=== PATIENT | male | born 1960 | race Caucasian/White ===

== ENCOUNTER 2023-08-06 16:56 | Emergency (ER) | payer MEDICARE, SELFPAY ==
--- NOTE | ~2023-08-06 | US_ITS ---
EXAMINATION: US VENOUS ULTRASOUND WITH DOPPLER LOWER EXTREMITY, LEFT CLINICAL INFORMATION: Pain in left calf COMPARISON: None available. TECHNIQUE: Ultrasound of the deep veins is performed from the hip to the calf with compression sonography and color and pulse Doppler assessment. Spectral analysis with color-flow imaging is performed. FINDINGS: There is normal venous compression and respiratory variation and augmented flow. The visualized common femoral vein, superficial femoral vein, profunda femoral vein, popliteal vein, and the trifurcation region shows no evidence of deep venous thrombosis. There is no significant popliteal fossa cyst. If the patient's symptoms persist, followup ultrasound in 5 days 7 days might be of value to exclude proximal propagation from a non-visualized calf vein. US/US venous duplex LE LT IMPRESSION: No DVT demonstrated in the left lower extremity.
[2023-08-06 18:32] VITALS: BP 133/80; PULSE 73; RESP 16; TEMP 36.2; O2SAT 96; BMI 32.7
[2023-08-06 18:49] LABS: MANUAL DIFF FLAG NO
[2023-08-06 18:50] LABS: Basophils Percent Auto 0.4 % (0-2); Eosinophils Absolute Auto 0.1 X10*3/uL (0.0-0.4); Eosinophils Percent Auto 1.9 % (0-4); Hematocrit 49.5 % (42.0-52.0); Imm Gran Abs Auto 0.03 X10*3/uL (0.00-0.03); Imm Gran Pct Auto 0.4 % (0.0-0.4); Lymphocytes Absolute Auto 3.1 X10*3/uL (1.2-4.9); Lymphocytes Percent Auto 40.6 % (20-40); Mean Corpuscular HGB Conc 34.3 g/dl (31.0-36.0); Mean Corpuscular Hemoglobin 30.4 pg (27.0-33.0); Mean Corpuscular Volume 88.4 fL (80.0-98.0); Mean Platelet Volume 10.2 fL (9.4-12.4); Monocytes Absolute Auto 0.7 X10*3/uL (0.1-1.2); Monocytes Percent Auto 9.7 % (2-11); Neutrophils Absolute Auto 3.5 x10*3/uL (2.0-8.3); Platelet Count 183 X10*3/uL (160-400); White Blood Count 7.5 X10*3/uL (4.8-10.8)
[2023-08-06 19:05] LABS: Alanine Aminotransferase 43 U/L (0-40); Albumin Level 3.8 g/dL (3.5-5.0); Alkaline Phosphatase 64 U/L (39-117); Anion Gap 12 (12-20); Aspartate Amino Transferase 23 U/L (5-37); Bilirubin Total 0.4 mg/dL (0.0-1.0); Blood Urea Nitrogen 15 mg/dL (9-16); Calcium 9.3 mg/dL (8.4-10.2); Carbon Dioxide 28 mmol/L (22-29); Chloride 107 mmol/L (96-108); Creatinine Clr Calc Pharmacy 80.1; Estimated Glomerular Filt Rate > 60; Glucose Random 144 mg/dL (60-115); Potassium 4.2 mmol/L (3.3-5.1); Sodium 143 mmol/L (135-145)
--- OUTSIDE RECORDS SUMMARY | 2023-08-07 02:12 | XMS_ITS | Continuity of Care Document ---
Author Name Unknown Organization [facility] ter Address [address] [place] [address]- Care Team Providers Care Striker Out Name Role Phone Mamadou Rossi MD Primary Care Physician [phone] Encounter [facility] Date(s): 11/24/19 - 02/23/[address] [address]- [facility] Attending Physician: Mamadou Rossi MD Allergies, Adverse Reactions, Alerts Substance Reaction Severity Status ciprofloxacin Active Immunizations Given and Recorded Vaccine Date Status Refusal Reason pneumococcal 23-valent vaccine 02/08/10 Given Medications aspirin 81 mg oral tablet 1 tablet = 81 mg, By Mouth, Daily, 0 Refills, Maintenance Start Date: 02/07/10 Status: Ordered Flomax 0.4 mg oral capsule 1 capsule = 0.4 mg, By Mouth, Daily, 0 Refills, Maintenance Start Date: 02/07/10 Status: Ordered
--- OUTSIDE RECORDS SUMMARY | 2023-08-07 02:12 | XMS_ITS | Continuity of Care Document ---
Author Name Unknown Organization [facility] ter Address [address] [place] [address]- Care Team Providers Care Supervisor Cap [employer] Hat Production Name Role Phone Flo PALOMO, Mamadou S Primary Care Physician Encounter [facility] [place] Date(s): 05/20/23 - 05/20/[address] [address] Discharge Disposition: A-D/C Home Attending Physician: Mamadou Cote MD Admitting Physician: Mamadou Cote MD Referring Physician: Mamadou Cote MD Allergies, Adverse Reactions, Alerts Substance Reaction Severity Status ciprofloxacin 1 Active 1Pt not aware of this allergy Immunizations Given and Recorded Vaccine Date Status Refusal Reason pneumococcal 23-valent vaccine 02/08/10 Given Medications Flonase Daily, 0 Refills, Maintenance, 04/06/23 9:27:00 EDT, Partial fill upon patient request if the prescription is for a schedule II opioid drug. Start Date: 04/06/23 Status: Ordered Multivitamin See Instructions, 1 tablet daily, 0 Refills, Maintenance, 05/19/23 12:14:00 EDT, Partial fill upon patient request if the prescription is for a schedule II opioid drug. Start Date: 05/19/23 Status: Ordered omeprazole 20 mg oral delayed release tablet 1 tablet = 20 mg, By Mouth, Daily, 0 Refills, Maintenance, 04/06/23 9:26:00 EDT, Partial fill upon patient request if the prescription is for a schedule II opioid drug. Start Date: 04/06/23 Status: Ordered Vitamin D3 1000 intl units oral capsule 1 capsule = 25 mcg, By Mouth, Daily, # 75 capsule, 0 Refills, Maintenance, 05/19/23 12:15:00 EDT, Capsule, Partial fill upon patient request if the prescription is for a schedule II opioid drug. Start Date: 05/19/23 Status: Ordered Problem List Condition Confirmation Course Effective Dates Status Health St atus Informant Inflamed epidermal inclusion cyst of posterior neck Confirmed Active GERD (gastroesophageal reflux disease) Confirmed Active Obese class I Confirmed Active Procedures Procedure Date Related Diagnosis Body Site Status Excision 3.5 cm epidermal in clusion cyst posterior neck 05/20/23 Completed Vital Signs Most recent to oldest [Reference Range]: 1 2 3 Height 173 cm (05/20/23 6:58 AM) 173 cm (05/19/23 12:16 PM) Weight 98.2 kg (05/20/23 6:58 AM) 95.5 kg (05/19/23 12:16 PM) Oxygen Saturation [94-100 %] 95 % (05/20/23 9:45 AM) 93 % *L* (05/20/23 9:30 AM) 97 % (05/20/23 9:15 AM) Pulse Rate [55-90 bpm] 63 bpm (05/20/23 6:58 AM) Body Mass Index [18.5-24.99 kg/m2] 32.81 kg/m2 *>HHI* (05/20/23 6:58 AM) 31.91 kg/m2 *>HHI* (05/19/23 12:16 PM) Blood Pressure [90-138/55-84 mm Hg] 119/83mm Hg (05/20/23 9:45 AM) 128/82mm Hg (05/20/23 9:30 AM) 128/79mm Hg (05/20/23 9:15 AM) Respiratory Rate [16-30 br/min] 18 br/min (05/20/23 9:45 AM) 23 br/min (05/20/23 9:30 AM) 31 br/min *H* (05/20/23 9:15 AM) Temperature [96.8-100.4 DegF] 97.1 DegF (05/20/23 9:15 AM) 97.1 DegF (05/20/23 6:58 AM) Mode of Delivery (Oxygen) Room air (05/20/23 9:45 AM) Room air (05/20/23 9:15 AM) Room air (05/20/23 6:58 AM) Blood pressure sites Arm, right (05/20/23 9:15 AM) Arm, left (05/20/23 6:58 AM) Temperature Route Temporal (05/20/23 9:15 AM) Temporal (05/20/23 6:58 AM) Dry Weight 98.2 kg (05/20/23 6:58 AM) 95.5 kg (05/19/23 12:16 PM) Weight Obtained Via Standing scale (05/20/23 6:58 AM) Patient/family stated (05/19/23 12:16 PM) Dry Weight Obtained Via Standing scale (05/20/23 6:58 AM) Patient/family stated (05/19/23 12:16 PM) Social History Social History Type Response Smoking Status Never (less than 100 in lifetime) entered on: 04/06/23 Sex Note * Daria Pastrana RN: PERFORM Event Display: Discharge/Transfer Note Hospital Authored Date: [id number] Nursing Discharge Note Entered On: 05/20/2023 9:52 EDT Performed On: 05/20/2023 9:51 EDT by Daria Pastrana RN Nursing Discharge Note 2 Discharge Time : 05/20/2023 9:52 EDT Discharge Level of Care at Discharge : Home/Nursing Home/Foster Care Patient Left Unit Via : Wheelchair Patient Accompanied Off Unit with : Responsible adult DC Instructions Provided & Signed by Pt : Yes Patient Understands D/C Instructions : Yes Verbalized Understanding of D/C Plan By : Patient Patient Instructions Discharge Signed : Yes Did Pt have Specialty Bed or Wound Vac : No Daria Pastrana RN - 05/20/2023 9:51 EDT * Daria Pastrana RN: PERFORM Event Display: Patient Education/Instruction Authored Date: [id number] Surgery Adult Discharge Instructions [address] [address] Name: BELLA BARAHONA : 1960?? Visit: 05/20/2023 05:50?? Current Date: 05/20/2023 09:27 ?? Account: [id number]?? Surgery Discharge Instructions We would like to thank you for allowing us to assist you with your healthcare needs. The following includes patient education materials and information regarding your injury/illness. Our entire staffstrives to provide an excellent experience for our patients and their families. PLEASE ENSURE YOU FOLLOW-UP PER THE INSTRUCTIONS BELOW! ?? YOUR OPINION IS IMPORTANT TO US! Please complete the survey you may receive by mail or email. Your feedback will be used to make improvements to the healthcare experiences of our patients and their families. Surveys are administered by [employer] ?? If further treatment with your primary care physician or another doctor is recommended, it is important for you to keep the appointment. Call your primary care physician or return to the Emergency Department immediately if your condition worsens, fails to improve, or new symptoms develop. If you need to find a doctor, you can call [facility] Link for a referral at [phone] or toll free at [phone]) or log in to [email or web address].. ?? [facility], in keeping with [facility] guidance, no longer requires face masks for staff, patientsor visitors in most situations. Similiar to time spent indoors at other locations, there is the chance that you were exposed to repiratory viruses during your time with us (such as flu or COVID-19). If you develop symptoms concerning for a viral respiratory infection, please seek testing (and treatment if indicated) from your medical provider or home test kit. ?? You can view and manage your care through the patient portal or by using a health care tamiko of your choosing. [employer] is a website that allows you to securely view your medical information including your hospital discharge summary, office visit summaries, medications and follow-up visits. You can also request appointments, renew medications, and request access to your medical information using a health care tamiko of your choosing, or just ask a question. You are entitled to know the individuals who participated in your treatment. This information is available within your medical record and will be provided upon your request. You can enroll at [email or web address] or register d uring your next office visit. You have been discharged from [facility], Patient Care Unit: [facility]??. If you have any questions regarding these instructions after you leave, please call us and we will be happy to assist you. [facility] Your Care Team Attending Physician Mamadou Cote MD?? Reason for Admission POSTERIOR NECK CYST CS DS Your Diagnosis Inflamed epidermal inclusion cyst of posterior neck Primary Care Provider Mamadou Rossi MD S? Advance Directive Health Care Proxy on File No What to do next Instructions From Your Doctor ?? Orders?? Instructions from your Care Team May shower and remove dressing in 48 hours. Leave sterii strips (white tape) in place, let them fall off on their own. Take Ibuprofen 600mg and Tylenol 1000 mg three times a day for three days.?? Both are over the counter. Scheduled Follow-Up Appointments Tuesday 12:10 PM EDT ?? With: Mamadou Cote MD Where: [address] [place] [address]- Status: Pending You Need to Schedule the Following Appointments Follow Up with??Mamadou Cote MD When:??Within 1 to 2 weeks Where: [address] [place] [address] [address] [place] [address]- Discharge Medications BELLA BARAHONA :1960 Visit Date:05/20/2023 Medications: Please continue your medications until treatment is completed or stopped by your provider. You may resume your daily prescription medications. Discuss any questions related to medications with your provider. What How Much When Instructions Next Dose Unchanged Cholecalciferol (Vitamin D3 1000 intl units oral capsule) 1 capsule Oral Daily Unchanged Fluticasone Nasal (Flonase) Daily Unchanged Multivitamin See instructions 1 tablet daily ?? Unchanged Omeprazole (omeprazole 20 mg oral delayed release tablet) 1 tab(s) Oral Daily Allergies (NKA means No Known Allergies) ciprofloxacin Education Materials Below is the list of Educational Leaflet Providered with your Discharge Instructions. Surgery Medical Daystay Surgical Overnight Discharge Instructions?NSAID Analgesic Schedule?? Valuables and Belongings I fully understand and agree that [facility] accepts no responsibility for all my personal property including clothing, toilet articles, radios, jewelry, dentures, hearing aids, rings, money, or any other property that is in my possession or is brought to me after admission. I understand certain valuables may be placed in a hospital safe for a short period of time. I understand that the hospital is not liable for loss or damage due to accident, fire, or other natural occurrence while said property is in the safe. I accept full responsibility for any personal property that I keep with me, and will not hold the hospital responsible in case of loss or disappearance. I acknowledge that i have been encouraged to send valuables and belongings home. ?? Review of Valuable and Belonging List: With patient Date for Pt to Sign Valuables/Belongings: 05/20/23 06:58:00 ?? Valuables & Belongings ?? Clothes Electronic devices Jewelry Monetary Items Personal devices Miscellaneous Medications (Valuables) Valuables at Bedside Pants, Shirt, Undergarments Cell phone ?? Credit cards, Money, Wallet ? Valuables Sent Home ? Valuables Sent to Security ? Other Discharge Information ? Pulmonary Rehab Status?? Pulmonary Rehab Discharge Status?? Respiratory Rate:??31 br/min??High ? Common Emergency Awareness Tips IS IT A STROKE? Act FAST and Check for these signs: FACE Does the face look uneven? ARM Does one arm drift down? SPEECH Does their speech sound strange? TIME Call at any sign of stroke ?? Heart Attack Signs Chest discomfort: Most heart attacks involve discomfort in the center of the chest and lasts more than a few minutes, or goes away and comes back. It can feel like uncomfortable pressure, squeezing, fullness or pain. Discomfort in upper body: Symptoms can include pain or discomfort in one or both arms, back, neck, jaw or stomach. Shortness of breath: With or without discomfort. Other signs: Breaking out in a cold sweat, nausea, or lightheaded. Remember, MINUTES DO MATTER. If you experience any of these heart attack warning signs, call to get immediate medical attention! ?? Smoking can increase your chances of developing chronic health problems and can cause harmful effects to other family members in your house. If you smoke, you are strongly encouraged to quit. Please call [facility] at [phone] or [phone] ([phone]) or log in to [email or web address] for referrals to smoking cessation programs. ?? The National Suicide Prevention Hotline is available 28/02 if you or someone you know needs to find a reason to keep living. By calling 7-586-273-hktn (9317) you'll be connected to a skilled, trained counselor at a crisis center in your area. SURGERY DISCHARGE INSTRUCTIONS SIGNATURE PAGE BELLA BARAHONA Location:[facility] Registration Date and Time:05/20/2023 05:50 EDT Primary Care Physician: Flo PALOMO, Mamadou Burgos, Attending Physician: Rocael PALOMO, Mamadou, I BELLA BARAHONA, have received the above patient education materials/instructions and have verbalized understanding. If ambulance or transport services are being used I further acknowledge being given a choice of service. ?? If you need to contact me, please call me at this number: . Patient/Securities Analyst Name: Patient/Securities Analyst Signature: Relationship to Patient: Witness Name/Signature: Date: * Daria Pastrana RN: PERFORM Event Display: Patient Education Leaflets Authored Date: [id number] Surgery Medical Daystay Surgical Overnight Discharge Instructions ?? 295 Medical Daystay/Surgical Overnight Discharge Instructions ? Since your coordination and judgment may be altered by medication and/or anesthesia, a responsible adult must drive you home from the hospital. ? If you have received medication for pain or sedation while under our care, you should not drive, operate machinery, drink alcohol, or sign any legal documents for 24 hours.?? You should have someone with you at home tonight. ? Remain at home the day of discharge.?? You may be up and about unless otherwise instructed by your physician. ? You may resume your daily prescription medication schedule.?? Any depressant medication should be avoided for 24 hours unless otherwise instructed by your surgeon or anesthesiologist. ? Call your physician for a follow-up appointment.? If you experience unusual or severe pain not relied by your pain medication, excessive bleedingor drainage, persistent nausea and vomiting, excessive swelling or redness, foul odor from incisionsite or fever over 100.6F, you need to call your physician. ? A follow-up phone call by a nurse will be made the day after your procedure.?? If you have stayed with us over night, you will not be receiving a follow-up phone call. ? Nausea and vomiting are a common side effect of prescription pain medication.?? We recommend that pills are not taken on an empty stomach.?? While taking any prescription pain medication you should not drive or drink alcohol. ? * Victoriano BUSTILLOS, [place]: PERFORM Event Display: Patient Education Leaflets Authored Date: [id number] NSAID Analgesic Schedule ?? 604 NSAID???s Analgesic Schedule ?? Pain is the primary source of illness following your procedure and can include dehydration, difficulty and painful swallowing, and weight loss. These symptoms can lead to increased post-operative visits and hospital readmission. The best way to control pain is to take pain medications regularly. Your doctor has recommended both Ibuprofen and Acetaminophen (generic/store brands are okay, too). These can be picked up over the counter at your pharmacy of choice. Follow the instructions on the bottle to determine the proper dosage to give. The simplest way to take these medications it to rotate the two at 3-hour intervals. Here is a sample diagram. The time you take your medications may vary from this example. Do not give Ibuprofen more than every 6 hours or Acetaminophen every 4 hours. Do not give Acetaminophen if your doctor has given you a prescription that contains Acetaminophen. ? Patient Care team information Care Team Personnel Name: Flo PALOMO, Mamadou Burgos Position: S Physician - Primary Care Member Role: PCP Address: Address: [address] [place] [address] Care Team Related Persons Name: APRIL BARAHONA Name: BARRY SINHA Address: home [address] [place] [address]
--- OUTSIDE RECORDS SUMMARY | 2023-08-07 02:12 | XMS_ITS | Continuity of Care Document ---
Author Name Unknown Organization [facility] Address [address] [place] [address] [address] [place] [address]- Care Team Providers Care Senior Dynamics Crm Developer Name Role Phone Mamadou Rossi MD Primary Care Physician Encounter [facility] Date(s): 04/20/23 - 04/27/[address] [place], [place] [address] Attending Physician: Mamadou Cote MD Referring Physician: Mamadou Rossi MD Allergies, Adverse Reactions, [...] opioid drug. Start Date: 04/06/23 Status: Ordered omeprazole 20 mg oral delayed release tablet 1 tablet = 20 mg, By Mouth, Daily, 0 Refills, Maintenance, 04/06/23 9:26:00 EDT, Partial fill upon patient request if the prescription is for a schedule II opioid drug. Start Date: 04/06/23 Status: Ordered Problem List Condition Confirmation Course Effective Dates Status Health St atus Informant Inflamed epidermal inclusion cyst of posterior neck Confirmed Active GERD (gastroesophageal reflux disease) Confirmed Active Obese class I Confirmed Active Vital Signs Most recent to oldest [Reference Range]: 1 Pulse Rate [55-90 bpm] 80 bpm (04/20/23 10:35 AM) Blood Pressure [90-138/55-84 mm Hg] 117/ 73mm Hg (04/20/23 10:35 AM) Respiratory Rate [16-30 br/min] 20 br/mi n (04/20/23 10:35 AM) Temperature [96.8-100.4 DegF] 97.2 DegF (04/20/23 10:35 AM) Blood pressure sites Arm, left (04/20/23 10:35 AM) Temperature Route Temporal (04/20/23 10:35 AM) Social History Social History Type Response Smoking Status Never (less than 100 in lifetime) entered on: 04/06/23 Sex Patient Care team information Care Team Personnel Name: Mamadou Rossi MD Position: [facility] Physician - Primary Care Member Role: PCP Address: Address: [address] [place] [address] Care Team Related Persons Name: APRIL BARAHONA Name: BARRY SINHA Address: [address] [address]
--- OUTSIDE RECORDS SUMMARY | 2023-08-07 02:12 | XMS_ITS | Continuity of Care Document ---
Author Name Unknown Organization [facility] Address [address] [place] [address] [address] [place] [address]- Care Team Providers Care Web Services Developer Name Role Phone Mamadou Rossi MD Primary Care Physician [place] [facility] [place] - 07/08/[address] [place], [place] [address] Attending Physician: Harley Perera Admitting Physician: AdmtrHarley Referring Physician: Admtr, [place] Allergies, Adverse Reactions, Alerts Substance Reaction Severity [...] Confirmed Active Obese class I Confirmed Active Social History Social History Type Response Smoking Status Never (less than 100 in lifetime) entered on: 04/06/23 Sex Patient Care team information Care Team Personnel Name: Mamadou Rossi MD Position: S Physician - Primary Care Member Role: PCP Address: Address: [address] [place] [address] Care Team Related Persons Name: APRIL BARAHONA Name: BARRY SINHA Address: home [address] [place] [address]
--- OUTSIDE RECORDS SUMMARY | 2023-08-07 02:12 | XMS_ITS | Continuity of Care Document ---
Author Name Unknown Organization [facility] Address [address] [place] [address] [address] [place] [address]- Care Team Providers Care Rn Traveling Name Role Phone Mamadou Rossi MD Primary Care Physician Encounter [facility] Date(s): 05/09/23 - 07/08/[address] [place] [address]- Attending Physician: Mamadou Cote MD Referring Physician: [...] Primary Care Member Role: PCP Address: Address: [address] [place] [address] Care Team Related Persons Name: APRIL BARAHONA Name: BARRY SINHA Address: home [address] [place] [id number]
--- OUTSIDE RECORDS SUMMARY | 2023-08-07 02:12 | XMS_ITS | Continuity of Care Document ---
Author Name Unknown Organization [facility] Address [address] [place] [address] [address] [place] [address]- Care Team Providers Care Industrial Relations Manager Name Role Phone Mamadou Rossi MD Primary Care Physician [place] [facility](s): 04/06/23 - 04/13/[address] [place], [place] [address] Attending Physician: Mamadou Cote MD Referring Physician: Mamadou Rossi MD Allergies, Adverse Reactions, Alerts Substance Reaction Severity Status ciprofloxacin 1 Active 1Pt not aware of this allergy Immunizations Given and Recorded Vaccine Date Status Refusal Reason pneumococcal 23-valent vaccine 02/08/10 Given Medications cephalexin monohydrate 500 mg oral capsule 1 capsule = 500 mg, By Mouth, 4 times a day, for 10 days, # 40 capsule, 0 Refills, Acute 04/16/23 10:01:00 EDT, 04/06/23 10:01:00 EDT, Capsule, [id number], Partial fill upon patient request if the prescription is for a schedule II opioid drug.... Start Date: 04/06/23 Stop Date: 04/16/23 Status: Ordered Flonase Daily, 0 Refills, Maintenance, 04/06/23 9:27:00 [...] Procedure Date Related Diagnosis Body Site Status Repair of inguinal hernia 2001 Completed Repair of inguinal hernia 1995 Completed Vital Signs Most recent to oldest [Reference Range]: 1 Height 172.00 cm (04/06/23 9:27 AM) Weight 97.2 kg (04/06/23 9:27 AM) Pulse Rate [55-90 bpm] 91 bpm *H* (04/06/23 9:27 AM) Body Mass Index [18.5-24.99 kg/m2] 32.86 kg/m2 *>HHI* (04/06/23 9:27 AM) Blood Pressure [90-138/55-84 mm Hg] 124/ 79mm Hg (04/06/23 9:27 AM) Respiratory Rate [16-30 br/min] 16 br/mi n (04/06/23 9:27 AM) Temperature [96.8-100.4 DegF] 98.2 DegF (04/06/23 9:27 AM) Blood pressure sites Arm, left (04/06/23 9:27 AM) Temperature Route Temporal (04/06/23 9:27 AM) Weight Obtained Via Standing scale (04/06/23 9:27 AM) Social History Social History Type Response Smoking Status Never (less than 100 in lifetime) entered on: 04/06/23 Sex Patient Care team information Care Team Personnel Name: Mamadou Rossi MD Position: S Physician - Primary Care Member Role: PCP Address: Address: [address] [place] [address] Care Team Related Persons Name: APRIL BARAHONA Name: BARRY SINHA Address: home [address] [place] [address]
== END 2023-08-07 02:17 | disposition left against medical advice (07) ==
PROVIDERS: Emergency Provider Emergency Medicine; PCP Internal Medicine
DX: M79.89 Other specified soft tissue disorders (principal)
CPT/HCPCS: 36415; 80053; 85025; 93971; 99281; 99284

== ENCOUNTER 2024-09-24 08:10 | Emergency (ER) | payer MEDICARE, SELFPAY ==
--- NOTE | ~2024-09-24 | US_ITS ---
CLINICAL HISTORY: pain popliteal fossa Venous duplex ultrasound right lower extremity Comparison: None Findings: The visualized deep veins are fully compressible with normal Doppler color flow and spectral tracings. No popliteal cyst. IMPRESSION: 1. Negative for right lower extremity deep vein thrombosis. This document has been electronically signed by: Della Pino MD on 09/24/2024 10:53:45
--- NOTE | ~2024-09-24 | XR_ITS ---
CLINICAL HISTORY: pop behind knee yesterday while shoveling 5 view right knee Comparison: None Findings: Normal alignment without acute fracture. Meniscal calcifications. Mild degenerative spiking of the tibial spines. Small superiorly projecting spur/osteophyte arising from anterior aspect of the tibial plateau. Small/physiological suprapatellar effusion. Mild suprapatellar focal capsular calcification. Small anterior patellar spurring. No radiopaque foreign body. IMPRESSION: 1. No acute fracture This document has been electronically signed by: Della Pino MD on 09/24/2024 09:07:02
[2024-09-24 08:18] VITALS: BP 135/86; PULSE 78; RESP 18; TEMP 36.2; O2SAT 98; BMI 32.5
--- NOTE | 2024-09-24 08:25 | ED.GENADULT ---
HPI - General Adult General Chief complaint: Extremity Problem Stated complaint: Leg Pain Time Seen by Provider: 09/24/24 08:25 Source: patient, family, RN notes reviewed and old records reviewed Mode of arrival: ambulatory Limitations: no limitations History of Present Illness ED Provider: [facility] narrative: Patient is a 64-year-old male presenting to the emergency department with complaint of right posterior knee pain. States that he was outdoors shoveling yesterday, and when he went in the house to remove his boots, he felt a pop behind his right knee (was standing on right leg at the time). Took aspirin last night with little relief. Limping due to pain. Denies chest pain, palpitations, dyspnea. MD complaint: knee pain Onset (ago): hour(s) Quality: aching Relieving factors: rest Exacerbating factors: movement Associated symptoms: denies other symptoms Related Data Previous Rx's ?Medication ?Instructions ?Recorded lidocaine 5 % topical patch 1 patch topical DAILY #15 ea 09/24/24 Allergies Allergy/AdvReac Type Severity Reaction Status Date / Time No Known Allergies Allergy Verified 09/24/24 08:20 Review of Systems Review of Systems: As per HPI Yes all other systems are reviewed and are negative Constitutional: Constitutional: Reports as per HPI COUNTS INCLUDE 234 BEDS AT THE [facility] Social History Social History Alcohol intake: current Alcohol intake frequency: a few times a week Smoked in Last 30 Days: No Use of substances other than those prescribed or required for medical reasons: No Advance Directives: No Advance Directives Information Provided: Yes Physical Exam ED Vital Signs: Vital Signs - 24 hr 09/24/24 08:18 Temperature 97.1 F Pulse Rate 78 Respiratory Rate 18 Blood Pressure 135/86 Pulse Oximetry 98 Oxygen Delivery Method Room Air BMI result Body Mass Index 32.5 Vital signs have been reviewed and appear to be correct. Blood pressure normal. Heart rate normal. Respiratory rate normal. Temperature normal. Oxygen saturation normal. Const General: cooperative, healthy appearing and no acute distress Orientation/consciousness: oriented to person, oriented to place, oriented to time and patient oriented x3 Limitations: no limitations HENMT Head: Yes normocephalic and Yes atraumatic Ears: external ears normal General nose exam: Normal external nose present Face and sinus: Yes face symmetric Mouth: oropharynx normal and moist mucous membranes Throat: Yes uvula midline Eyes Pupils: Equal, round and reactive pupils present Neck Neck: Yes normal visual inspection and Yes supple Resp Effort & Inspection: normal respiratory effort and able to speak in complete sentences Auscultation: clear to auscultation bilaterally Cardio Rate: regular rate Rhythm: regular rhythm Heart sounds: S1 normal heart sound present and S2 normal heart sound present GI Palpation (GI): Soft to palpation and nontender Auscultation: normoactive bowel sounds General: Yes no CVA tenderness Back/Spine/Pelvis Back: no CVA tenderness Skin General skin exam: elasticity normal and turgor normal Neuro General: oriented to person, oriented to place, oriented to time, patient oriented x3, moves all extremities, no focal motor deficits and CN's II-XI intact bilaterally Cranial nerves: Yes Equal, round and reactive pupils present Cognition (Neuro): normal cognition Extrem General: Yes full ROM, Yes no pedal edema and Yes no calf tenderness Right lower extremity: knee Details: normal to inspection, tenderness Location: of the popliteal fossa, normal ROM and knee ligament exam normal; no swelling and foot Details: vascular exam Details: dorsalis pedis pulse present, posterior tibial pulse present and normal capillary refill Psych Mental Status: mental status grossly normal Affect: normal affect Thought process: Normal thought process present Medical Decision Making Medical Decision Making [facility] Narrative: Patient is a 64-year-old male presenting to the emergency department with complaint of right posterior knee pain. On exam patient is awake, A+Ox3, VS WNL, afebrile, normal neurological exam without focal deficits, physical exam findings as above. Given reported symptoms and physical exam findings, initial differential includes but is not limited to right knee strain, sprain, fracture, dislocation, Carrera's cyst, DVT. X-ray notable for no acute fracture. Ultrasound is without evidence of DVT or Carrera's cyst. My interpretation is in agreement with the radiologist's interpretation. Given that patient is having significant difficulty bearing weight on right leg, will place patient in knee immobilizer and provide crutches with crutch teaching until ortho follow up. Return precautions discussed. Patient verbalized understanding of and agreement with plan. Differential Diagnosis Differential Diagnoses: The differential diagnosis associated with the presentation includes as per mDM Independent Interpretation I performed an independent interpretation of an: Plain X-Ray and Ultrasound Interpretation: X-ray notable for no acute fracture. Ultrasound is without evidence of DVT or Carrera's cyst. Radiology Impression Discussion of test interpretation with radiology: I have reviewed the radiologist's reading. Radiologist Impression: IMPRESSION: 1. No acute fracture Findings: The visualized deep veins are fully compressible with normal Doppler color flow and spectral tracings. No popliteal cyst. IMPRESSION: 1. Negative for right lower extremity deep vein thrombosis. External Record Review External record reviewed: Inpatient record, Office record and Outpatient record Prescription Management I considered prescription management with: Pain Medication Discharge Plan Discharge Clinical Impression: Strain of right knee Patient Disposition: Home, Self-Care Instructions: Knee Sprain (DC), Crutch Instructions (ED), Knee Pain (ED), Knee Immobilizer (ED) Additional Instructions: You have been evaluated in the emergency department today for knee pain. Your evaluation did not find evidence of medical conditions requiring emergent intervention at this time. We have provided a knee immobilizer and crutches for you to use while your knee heals. Please rest, ice, and elevate your leg, and resume normal activities as tolerated. We recommend you take 600mg ibuprofen every 6 hours or 650mg Tylenol every 6 hours as needed for pain. If Needed you can alternate these medications as they take 1 medication every 3 hours. For instance at noon take ibuprofen, then at 3:00 p.m. take Tylenol, then at 6:00 p.m. take ibuprofen. Please schedule an appointment for follow-up with your primary care provider this week. Return to the emergency department if you experience worsening pain, numbness, tingling, change of color in your leg, or any other concerning symptoms. Prescriptions: New lidocaine 5 % adhesive patch,medicated 1 patch topical DAILY Qty: 15 0RF Rx Instructions: leave on most painful area for up to 12 hrs Referrals: [facility] [place]Provider Group] Print Language: Tamazight
[2024-09-24 12:29] VITALS: BP 135/86; PULSE 78; RESP 18; TEMP 36.2; O2SAT 98
== END 2024-09-24 12:29 | disposition home or self-care (01) ==
PROVIDERS: Emergency Provider Emergency Medicine; PCP Internal Medicine
DX: S83.91XA Sprain of unspecified site of right knee, initial encounter (principal); R60.0 Localized edema; M25.561 Pain in right knee; X50.3XXA Overexertion from repetitive movements, initial encounter; Y93.H1 Activity, digging, shoveling and raking; Y92.007 Garden or yard of unspecified non-institutional (private) residence as the place of occurrence of the external cause; Y99.8 Other external cause status
CPT/HCPCS: 73564; 93971; 99284

== ENCOUNTER → 2024-09-24 08:26 | Outpatient (BNV) | payer MEDICARE, SELFPAY | PROVIDERS: Emergency Provider Emergency Medicine; PCP Internal Medicine; Visit Provider Radiology Diagnostic Radiology | DX: M79.604 Pain in right leg (principal); M25.561 Pain in right knee | CPT/HCPCS: 73564; 93971 ==

== ENCOUNTER 2024-11-07 08:33 | Outpatient (AMB) | payer MEDICARE, SELFPAY ==
--- NOTE | 2024-11-07 08:37 | MHC.OFFVIS ---
Vital Signs 11/07/24 08:41 Height 5 ft 8 in Weight 214 lb BMI 32.5 Intake Visit Reasons: Right knee pain and giving way Intake Note: Dallin is a 64 year old male who presents with complaints of progressively worsening right knee pain and giving way. The patient states that he injured his right knee this past winter while shoveling snow. He twisted his knee and had acute onset of pain. Since that time his symptoms have gotten progressively worse. He has tried ibuprofen and Tylenol which gave him minimal relief. He has failed the last 6 weeks of conservative treatment. He has tried physical therapy exercises which aggravated his pain. He states that his right knee will give out several times per day. He has also tried wearing a knee brace which gives him minimal relief. Allergies No Known Allergies Allergy (Verified 09/24/24 08:20) Medication List - Last Reconciled 11/07/24 by Ivan Gutierrez MD lidocaine 5% 1 patch topical DAILY PFSH Social History (Updated 11/07/24 @ 08:40 by Jorge A Whitehead) Alcohol intake: current Alcohol intake frequency: a few times a week Patient Tobacco Use Status: Never used Tobacco Current occupational status: retired Physical Exam Vital Signs: BMI result Body Mass Index 32.5 Const Other: Well-nourished well-developed very friendly male awake alert and oriented x3 in no acute distress Extrem Other: Bilateral lower extremity examination shows good capillary refill, no skin lesions noted, normal sensation light touch Right knee examination shows a minimal effusion, mild crepitus with range of motion, tenderness along his medial joint line, positive Gopi's test, no instability Results Reviewed Results Reviewed: Standing full weight-bearing x-rays of the patient's right knee show mild diffuse joint space narrowing, no acute bony abnormalities Assessment & Plan Assessment & Plan (1) Tear of medial meniscus of right knee: Code(s): S83.241A - Other tear of medial meniscus, current injury, right knee, initial encounter Category: Medical Plan Mr. Manriquez presents with progressively worsening right knee pain and mechanical symptoms most likely due to a medial meniscus tear. Thus, I will send the patient for an MRI of his right knee for further evaluation. I will see him back once the MRI is completed to discuss the findings and treatment options. Feel free to call me at any time should questions regarding his orthopedic management arise. Thank you very much for asking me to see this very friendly gentleman. I spent 20 minutes in reviewing the patient's records and imaging studies, seeing the patient and documenting in the medical record. Orders: Orders MR knee RT wo con Today S83.241A - Other tear of medial meniscus, current injury, right knee, initial encounter Coding Level of Care Code New Pt Level 3 (58377) Complex EM visit Add On G2211 Diagnoses Tear of medial meniscus of right knee S83.241A
[2024-11-07 08:41] VITALS: BMI 32.5
== END 2024-11-07 09:13 | disposition home or self-care (01) ==
LOC: HO.HOS 08:34
PROVIDERS: PCP Internal Medicine; Visit Provider Orthopaedic Surgery
DX: S83.241A Other tear of medial meniscus, current injury, right knee, initial encounter (principal)
CPT/HCPCS: 99203; G2211

== ENCOUNTER → 2024-11-07 08:33 | Outpatient (BNVA) | payer MEDICARE, SELFPAY | PROVIDERS: PCP Internal Medicine; Visit Provider Orthopaedic Surgery | DX: S83.241A Other tear of medial meniscus, current injury, right knee, initial encounter (principal) | CPT/HCPCS: 99202 ==

== ENCOUNTER → 2024-11-21 07:13 | Outpatient (BNV) | payer MEDICARE, SELFPAY | PROVIDERS: Visit Provider Radiology Diagnostic Radiology | DX: S83.241A Other tear of medial meniscus, current injury, right knee, initial encounter (principal); M17.11 Unilateral primary osteoarthritis, right knee; M25.461 Effusion, right knee | CPT/HCPCS: 73721 ==

== ENCOUNTER 2024-11-21 07:15 | Outpatient (REF) | payer MEDICARE, SELFPAY ==
--- NOTE | ~2024-11-21 | MR_ITS ---
CLINICAL HISTORY: S83.241A - Other tear of medial meniscus, current injury, right knee, in... MR right knee without gadolinium Comparison: CR - XR KNEE RT 4V - 09/24/24 08:37 EST Findings: Complete or near-complete radial tear at the medial meniscal posterior horn/root junction. The medial meniscal body is slightly extruded from the joint space. The lateral meniscus is intact. Cruciate ligaments are intact. Nonuniform up to full-thickness patellar articular cartilage loss which is most conspicuous along the median ridge and associated with subchondral edema. In combination with small marginal osteophytes this is compatible with moderate osteoarthritis. The medial and lateral compartment articular cartilage is maintained. Small focus of edema signal within the posterior medial tibial plateau may represent avulsive reaction from the medial meniscal injury. Small knee joint effusion. No significant Carrera's cyst. Patellar retinacula and iliotibial band are intact. Small patellar enthesophytes. Quadriceps, patellar, popliteus, and flexor tendons are intact. IMPRESSION: 1. Complete or near-complete radial tear involving the medial meniscal posterior horn/root junction. The medial meniscal body is slightly extruded from the joint space. 2. Moderate patellar osteoarthritis. 3. Small knee joint effusion. This document has been electronically signed by: Jaison Perdomo DO on 11/22/2024 09:35:58
== END 2024-11-21 07:16 | disposition home or self-care (01) ==
LOC: HO.MRI 07:15
PROVIDERS: Visit Provider Orthopaedic Surgery
DX: S83.241A Other tear of medial meniscus, current injury, right knee, initial encounter (principal)
CPT/HCPCS: 73721

== ENCOUNTER 2024-11-22 14:32 | Outpatient (AMB) | payer MEDICARE, SELFPAY ==
--- NOTE | 2024-11-22 14:39 | A.OFFVIS_ITS ---
Intake Visit Reasons: OV-Right knee MRI review Intake Note: Dallin is a 64 year old male who presents with complaints of intermittent right knee discomfort. The patient states that he injured his right knee this past winter while shoveling snow. He twisted his knee and had acute onset of pain. Since that time his symptoms have gotten progressively worse. He has tried ibuprofen and Tylenol which gave him minimal relief. He has failed the last 6 weeks of conservative treatment. He has tried physical therapy exercises which aggravated his pain. He has also tried wearing a knee brace which gives him minimal relief. Allergies No Known Allergies Allergy (Verified 11/22/24 14:41) Medication List - Last Reconciled 11/22/24 by Ivan Gutierrez MD lidocaine 5% 1 patch topical DAILY PFSH Social History (Updated 11/07/24 @ 08:40 by Jorge A Whitehead) Alcohol intake: current Alcohol intake frequency: a few times a week Patient Tobacco Use Status: Never used Tobacco Current occupational status: retired Physical Exam Const Other: Well-nourished well-developed very friendly male awake alert and oriented x3 in no acute distress Extrem Other: Right knee examination shows a minimal effusion, minimal crepitus with range of motion, tenderness along his medial joint line, positive Gopi's test, no instability Results Reviewed Results Reviewed: MRI of the patient's right knee shows mild diffuse degenerative changes as well as a tear of the medial meniscus Assessment & Plan Assessment & Plan (1) Tear of medial meniscus of right knee: Code(s): S83.241A - Other tear of medial meniscus, current injury, right knee, initial encounter Category: Medical Plan Mr. Manriquez presents with intermittent right knee pain and mechanical symptoms due to a medial meniscus tear. I had a lengthy discussion with the patient regarding the treatment options. At this point the patient's symptoms are tolerable to him. Wishes to hold off on surgery if at all possible. I agree with this plan. He will continue with his activity modifications. He will follow up with me on an as-needed basis should his symptoms worsen in any way. Feel free to call me at any time should questions regarding his orthopedic m anagement arise. I spent 21 minutes in reviewing the patient's records and imaging studies, seeing the patient and documenting in the medical record. Coding Level of Care Code Est Pt Level 3 (31878) Complex EM visit Add On G2211 Diagnoses Tear of medial meniscus of right knee S86.111R
== END 2024-11-22 14:55 | disposition home or self-care (01) ==
LOC: HO.HOS 14:32
PROVIDERS: Visit Provider Orthopaedic Surgery
DX: S83.241A Other tear of medial meniscus, current injury, right knee, initial encounter (principal)
CPT/HCPCS: 99213

== ENCOUNTER → 2024-11-22 14:32 | Outpatient (BNVA) | payer MEDICARE, SELFPAY | PROVIDERS: Visit Provider Orthopaedic Surgery | DX: S83.241A Other tear of medial meniscus, current injury, right knee, initial encounter (principal) | CPT/HCPCS: 99212 ==